=== PATIENT | female | born 1955 | race Caucasian/White ===

== ENCOUNTER → 2018-07-14 12:41 | Outpatient (CLI) | payer OTHER, SELFPAY ==
--- NOTE | 2018-07-14 | DI.MG.S_ITS ---
BILATERAL DIGITAL SCREENING MAMMOGRAM 3D/2D WITH CAD: 07/14/2018 CLINICAL: Routine screening. Family history of breast cancer. Comparison is made to exams dated: 07/11/2017 mammogram, 06/25/2016 mammogram, and 06/25/2015 mammogram - [facility]. The tissue of both breasts is heterogeneously dense. This may lower the sensitivity of mammography. Current study was also evaluated with a Computer Aided Detection (CAD) system. There are benign calcifications in both breasts. No significant masses, calcifications, or other findings are seen in either breast. There has been no significant interval change. IMPRESSION: There is no mammographic evidence of malignancy. A 1 year screening mammogram is recommended. This exam was interpreted at Station ID: [id number]. NOTE: For mammograms, a report in lay terms will be sent to the patient. Approximately 15% of breast malignancies will not be visualized mammographically. In the management of a palpable breast mass, a negative mammogram must not discourage biopsy of a clinically suspicious lesion. Electronically Signed By: Luis corley/tinana:07/14/2018 13:20:36 letter sent: Normal Exam ACR BI-RADS Category 2: Benign Finding(s) 3342F
== END ==
PROVIDERS: PCP Family Medicine; Visit Provider Family Medicine
DX: Z12.31 Encounter for screening mammogram for malignant neoplasm of breast (principal); Z80.3 Family history of malignant neoplasm of breast
CPT/HCPCS: 77063; 77067

== ENCOUNTER 2019-01-11 11:42 | Day surgery (SDC) | payer OTHER, SELFPAY ==
[2019-01-11 13:02] VITALS: BP 122/78; PULSE 70; RESP 16; TEMP 37.2; O2SAT 100
[2019-01-11 13:03] VITALS: BMI 37.4
[2019-01-11] MEDS: SODIUM CHLORIDE 0.9% 1,000 ML 200 ML IV (13:07)
--- NOTE | 2019-01-11 13:22 | P.HP_ITS ---
History of Present Illness History of Present Illness Date Patient Seen: 01/11/19 Time Patient Seen: 13:22 Chief complaint: [id number] Narrative: Patient presents for colorectal screening. They had a previous colonoscopy 19 years ago that was normal. On further history denies any recent gastrointestinal symptoms. No nausea, vomiting, abdominal pain, loss of appetite, unexplained weight loss, change in bowel habits, constipation, melena, hematochezia, or bright red blood per rectum. Patient History Medical History (Updated 01/11/19 @ 13:24 by Nahum Dempsey MD) Asthma (Acute) GERD (gastroesophageal reflux disease) (Acute) Hypothyroid (Acute) Surgical History (Updated 01/11/19 @ 13:23 by Nahum Dempsey MD) History of cholecystectomy (Acute) Social History household members: none Family & Social History Social History: household members none Meds Home Medications and Allergies Home Medications Medication Instructions Recorded Confirmed Type CHOLECALCIFEROL (VITAMIN D3) Q DAY #0 06/14/10 History (Vitamin D3) OXYMETAZOLINE HYDROCHLORIDE (Afrin) 2 spray INTRANASAL PRN #0 06/14/10 History TRIAMCINOLONE NASAL INHALER 1 puff INH PRN #0 06/14/10 History (NASACORT) VITAMIN C - Q DAY #0 06/14/10 History (VITAMIN C) [CQ10] Q DAY #0 06/14/10 History [GLUCOSAMINE] Q DAY #0 06/14/10 History albuterol sulfate [ProAir HFA] 1 inh INHALATION QID #0 06/14/10 01/11/19 History beclomethasone dipropionate [Qvar 1 inh INHALATION BID #0 06/14/10 01/11/19 History RediHaler] levothyroxine [Synthroid] 75 mcg PO DAILY #0 06/14/10 01/11/19 History triamterene-hydrochlorothiazid 1 cap PO DAILY #0 06/14/10 01/11/19 History omeprazole 20 mg PO DAILY 01/11/19 01/11/19 History Allergies Allergy/AdvReac Type Severity Reaction Status Date / Time morphine AdvReac Mild itching Verified 01/11/19 13:12 all over tomato AdvReac Mild itching Verified 01/11/19 13:12 Review of Systems Review of Systems ROS Unobtainable: All systems reviewed & are unremarkable except as noted in HPI and below Exam Vital Signs (past 8 hours): - 01/11/19 13:02 Temperature 99.0 F Pulse Rate 70 Respiratory Rate 16 Blood Pressure 122/78 Pulse Oximetry 100 Oxygen Delivery Method Room Air Narrative Exam Narrative: General-adult female no acute distress, well nourished HEENT-moist mucous membranes, no scleral icterus Neck-supple with full range of motion, no lymphadenopathy Chest- no labored respirations, clear to auscultation bilaterally Cardiac-regular rate and rhythm Abdomen-soft, nontender, non distended Extremities-no edema, warm well perfused Neurological-alert and oriented x 3. No focal deficits Skin-normal temperature and turgor, no rashes or ulcers Assessment & Plan Assessment and plan (1) Screening for colon cancer: Current visit: Yes Status: Acute Assessment & Plan narrative: Patient is requiring colorectal screening. Colonoscopy is recommended. Technical details were discussed. Risks, benefits, alternatives explained. Risks including but not limited to sedation, aspira tion, bleeding, pain, missed lesion, incomplete examination, need for further radiographic studies, colonic perforation, need for major abdominal surgery, and all attendant risks major surgery were discussed at length. All questions were answered to their satisfaction, and they voiced understanding.
[2019-01-11] MEDS: MIDAZOLAM 5 MG/5 ML VIAL IV ×2 (13:25→13:49)
[2019-01-11] MEDS: fentaNYL 250 MCG/5 ML INJ IV ×2 (13:25→13:49)
[2019-01-11] MEDS: GLUCAGON,HUMAN RECOMBINANT 1 MG/ML VIAL IV (13:33)
[2019-01-11 13:55] VITALS: BP 130/70; PULSE 71; RESP 16; TEMP 36.2; O2SAT 99
--- NOTE | 2019-01-11 13:55 | PM.OP.ENDO ---
Operative Date/Time/Diagnoses Date of procedure: 01/11/19 Time of procedure: 13:56 Post-op diagnosis: same Procedure & Clinicians Study performed: Screening colonoscopy Same procedure as scheduled: Yes Indications: 63-year-old female with previous colonoscopy 19 years ago presents routine screening Surgeon: Nahum Dempsey Procedure Notes SCOAP/Timeout: For for Procedure in detail: A digital rectal exam was performed that was negative for internal masses. Scope was carefully inserted into the rectum and advanced through the sigmoid and descending colon and transverse colon. I was unable to make it the cecum. Attempts with repositioning the patient a scope stiffener and manual pressure were attempted but none were successful in completely navigating her tortuous colon. The scope was slowly withdrawn. The colon was notable for for the next diverticulosis. She will require a barium enema to complete her screening. Scope withdrawal time: NA Sedation minutes: 30 Findings: diverticulosis Specimen(s): none sent Complications: none Impression: Incomplete colonoscopy. Diverticulosis Post-procedure Recommendations: Other recommendation (Barium enema) Disposition: same day surgery
[2019-01-11 14:00] VITALS: BP 117/64; PULSE 67; RESP 17; O2SAT 98
[2019-01-11 14:05] VITALS: BP 129/71; PULSE 95; RESP 17; O2SAT 98
[2019-01-11 14:14] VITALS: BP 119/67; PULSE 65; RESP 16; O2SAT 99
[2019-01-11 15:20] VITALS: BP 114/58; PULSE 72; RESP 15; TEMP 36.1; O2SAT 100
== END 2019-01-11 15:24 | disposition home or self-care (01) ==
PROVIDERS: PCP Family Medicine; Visit Provider Surgery
PROC: 0DJD8ZZ Inspection of Lower Intestinal Tract, Via Natural or Artificial Opening Endoscopic (ICD-10-PCS; CPT 45378; principal; 2019-01-11 13:00)
DX: Z12.11 Encounter for screening for malignant neoplasm of colon (principal); K57.30 Diverticulosis of large intestine without perforation or abscess without bleeding; Z53.09 Procedure and treatment not carried out because of other contraindication; J45.909 Unspecified asthma, uncomplicated; E03.9 Hypothyroidism, unspecified; K21.9 Gastro-esophageal reflux disease without esophagitis
CPT/HCPCS: 45378; 99152; 99153; J1610; J2250; J3010

== ENCOUNTER → 2019-02-16 07:45 | Outpatient (CLI) | payer OTHER, SELFPAY ==
--- NOTE | 2019-02-16 07:46 | DI.RAD.S_ITS ---
PROCEDURE: FL BARIUM ENEMA W AIR CONTRAST INDICATIONS: tortuous colon unable to reach extent of colonoscopy COMPARISON: None. FINDINGS: KUB: Pre-procedural budget counselor film demonstrates a normal bowel gas pattern. No suspicious abdominal calcifications. Visualized solid organ contours are normal in size. No suspicious bony lesions. Colon: There is adequate air-contrast opacification from the rectum to the cecum. Numerous colonic diverticula. No strictures, ulcers, polyps, or masses are seen. Haustral folds are normal in thickness throughout. IMPRESSION: Diffuse colonic diverticulosis. Otherwise, unremarkable examination. Dictated by: Carter Hawkins M.D. on 02/16/2019 at 9:36 Approved by: Carter Hawkins M.D. on 02/16/2019 at 9:37
== END ==
PROVIDERS: PCP Family Medicine; Visit Provider Surgery
DX: Z12.11 Encounter for screening for malignant neoplasm of colon (principal); K57.30 Diverticulosis of large intestine without perforation or abscess without bleeding
CPT/HCPCS: 74280

== ENCOUNTER → 2019-03-08 13:27 | Outpatient (CLI) | payer OTHER, SELFPAY ==
--- NOTE | 2019-03-08 | DI.CT.S_ITS ---
PROCEDURE: CT SINUS SCREEN WO CON INDICATIONS: Acute sinusitis, unspecified TECHNIQUE: Noncontrast 3.0 mm axial images acquired from the frontal sinuses to the mid-sella, with coronal and sagittal reformats. For radiation dose reduction, the following was used: automated exposure control, adjustment of mA and/or kV according to patient size. COMPARISON: None. FINDINGS: Image quality: Excellent. Maxillary Sinuses: No bony remodeling or destruction. A mucus retention cyst can be seen involving the medial left maxillary sinus. Ethmoid Air Cells: No bony remodeling or destruction. Sinuses are clear. Sphenoid Sinuses: No bony remodeling or destruction. Sinuses are clear. Frontal Sinuses: No bony remodeling or destruction. Sinuses are clear. Ostiomeatal Complexes: Ostiomeatal complexes are patent. No Jocelyne cells. Miscellaneous: There is a 3 mm metallic fragment seen involving the right lamina papyracea. Visualized intra-orbital contents are otherwise normal. No major bullosa or paradoxical turbinate curvature. There is minimal rightward nasal septal deviation. Incidental note is made of hyperostosis frontalis. This is not considered to be pathologic in a woman of this age. IMPRESSION: No significant active paranasal sinus disease is seen. 3 mm metallic fragment seen involving the right lamina papyracea. Dictated by: Frank Aragon M.D. on 03/08/2019 at 13:14 Approved by: Frank Aragon M.D. on 03/08/2019 at 13:17
== END ==
PROVIDERS: PCP Family Medicine; Visit Provider Family Medicine
DX: J01.90 Acute sinusitis, unspecified (principal); M79.5 Residual foreign body in soft tissue; Z18.10 Retained metal fragments, unspecified
CPT/HCPCS: 70486

== ENCOUNTER → 2019-10-03 14:34 | Outpatient (CLI) | payer OTHER, SELFPAY ==
--- NOTE | 2019-10-03 | DI.MG.S_ITS ---
BILATERAL DIGITAL SCREENING MAMMOGRAM 3D/2D WITH CAD: 10/03/2019 CLINICAL: Routine screening. Family history of breast cancer. Comparison is made to exams dated: 07/14/2018 mammogram, 07/11/2017 mammogram, and 06/25/2016 mammogram - [facility]. The tissue of both breasts is heterogeneously dense. This may lower the sensitivity of mammography. Current study was also evaluated with a Computer Aided Detection (CAD) system. There are benign calcifications in both breasts. No significant masses, calcifications, or other findings are seen in either breast. There has been no significant interval change. IMPRESSION: There is no mammographic evidence of malignancy. A 1 year screening mammogram is recommended. This exam was interpreted at Station ID: [id number]. NOTE: For mammograms, a report in lay terms will be sent to the patient. Approximately 15% of breast malignancies will not be visualized mammographically. In the management of a palpable breast mass, a negative mammogram must not discourage biopsy of a clinically suspicious lesion. Electronically Signed By: Brigette tavarez/tianna:10/03/2019 15:19:38 letter sent: Normal Exam ACR BI-RADS Category 2: Benign Finding(s) 3342F
== END ==
PROVIDERS: PCP Family Medicine; Referring Provider Family Medicine; Visit Provider Family Medicine
DX: Z12.31 Encounter for screening mammogram for malignant neoplasm of breast (principal); Z80.3 Family history of malignant neoplasm of breast
CPT/HCPCS: 77063; 77067

== ENCOUNTER → 2020-04-28 12:05 | Outpatient (CLI) | payer MEDICARE, OTHER, SELFPAY ==
--- NOTE | 2020-04-28 | DI.RAD.S_ITS ---
PROCEDURE: XR HIP W PEL IF DONE RT 2V INDICATIONS: RIGHT HIP PAIN TECHNIQUE: AP pelvis with lateral view(s) of the right hip(s). COMPARISON: [facility], , HIP 2V LEFT, 06/20/2013, 12:20. FINDINGS: Bones: No fractures or dislocations. Pelvic ring appears intact. No suspicious bony lesions. Soft tissues: The visualized bowel gas pattern is normal. No suspicious soft tissue calcifications. IMPRESSION: Asymmetric hip joint osteoarthritis, minimal on the left and moderate on the right. No trauma. Dictated by: Michael Corrales M.D. on 04/28/2020 at 13:45 Approved by: Michael Corrales M.D. on 04/28/2020 at 13:45
== END ==
PROVIDERS: PCP Family Medicine; Referring Provider Family Medicine; Visit Provider Family Medicine
DX: M25.551 Pain in right hip (principal); M16.11 Unilateral primary osteoarthritis, right hip
CPT/HCPCS: 73502

== ENCOUNTER → 2020-10-07 10:04 | Outpatient (CLI) | payer MEDICARE, OTHER, SELFPAY ==
--- NOTE | 2020-10-07 | DI.MG.S_ITS ---
BILATERAL DIGITAL SCREENING MAMMOGRAM 3D/2D WITH CAD: 10/07/2020 CLINICAL: Routine screening. Family history of breast cancer. Comparison is made to exams dated: 10/03/2019 mammogram, 07/14/2018 mammogram, and 07/11/2017 mammogram - [facility]. The tissue of both breasts is heterogeneously dense. This may lower the sensitivity of mammography. Current study was also evaluated with a Computer Aided Detection (CAD) system. There are benign calcifications in both breasts. No significant masses, calcifications, or other findings are seen in either breast. There has been no significant interval change. IMPRESSION: BENIGN There is no mammographic evidence of malignancy. A 1 year screening mammogram is recommended. This exam was interpreted at Station ID: [id number]. NOTE: For mammograms, a report in lay terms will be sent to the patient. Approximately 15% of breast malignancies will not be visualized mammographically. In the management of a palpable breast mass, a negative mammogram must not discourage biopsy of a clinically suspicious lesion. Electronically Signed By: Tirso herndon/tianna:10/07/2020 10:47:02 letter sent: Normal Exam ACR BI-RADS Category 2: Benign Finding(s) 3342F
== END ==
PROVIDERS: PCP Family Medicine; Referring Provider Family Medicine; Visit Provider Family Medicine
DX: Z12.31 Encounter for screening mammogram for malignant neoplasm of breast (principal); Z80.3 Family history of malignant neoplasm of breast
CPT/HCPCS: 77063; 77067

== ENCOUNTER → 2021-04-14 13:36 | Outpatient (CLI) | payer MEDICARE, OTHER, SELFPAY ==
--- NOTE | 2021-04-14 | DI.US.S_ITS ---
PROCEDURE: US PERIPH VENOUS LOW EXTREM LT INDICATIONS: LEFT KNEE PAIN TECHNIQUE: Real-time imaging, as well as color and pulse Doppler interrogation, were performed of the lower extremity deep veins from the inguinal ligament to the popliteal fossa. COMPARISON: None. FINDINGS: The common femoral, femoral and popliteal veins are normally compressible, and free of intraluminal thrombus. Color and pulse Doppler demonstrate normal phasic intraluminal flow. There is normal augmentation response to distal compression maneuver. 2.3 x 1.0 x 0.7 centimeter fluid collection noted in the posterior medial fossa which likely represents popliteal cyst. IMPRESSION: No evidence of deep vein thrombosis involving the left lower extremity. Dictated by: Smiley Nair MD, PhD on 04/14/2021 at 14:56 Approved by: Smiley Nair MD, PhD on 04/14/2021 at 15:46
== END ==
PROVIDERS: PCP Family Medicine; Referring Provider Family Medicine; Visit Provider Family Medicine
DX: M25.562 Pain in left knee (principal)
CPT/HCPCS: 93971

== ENCOUNTER → 2021-05-26 13:49 | Outpatient (CLI) | payer MEDICARE, OTHER, SELFPAY ==
--- NOTE | 2021-05-26 | DI.MG.S_ITS ---
UNILATERAL LEFT DIGITAL DIAGNOSTIC MAMMOGRAM 3D/2D: 05/26/2021 CLINICAL: Left breast pain. Comparison is made to exams dated: 10/07/2020 mammogram, 10/03/2019 mammogram, and 07/14/2018 mammogram - [facility]. The tissue of left breast is heterogeneously dense. This may lower the sensitivity of mammography. No significant masses, calcifications, or other findings are seen in the breast. IMPRESSION: INCOMPLETE: NEEDS ADDITIONAL IMAGING EVALUATION There is no abnormality seen in the left breast to correspond with the pain, however, ultrasound is recommended. This exam was interpreted at Station ID: [id number]. NOTE: For mammograms, a report in lay terms will be sent to the patient. Approximately 15% of breast malignancies will not be visualized mammographically. In the management of a palpable breast mass, a negative mammogram must not discourage biopsy of a clinically suspicious lesion. Electronically Signed By: Tirso herndon/tianna:05/26/2021 15:51:42 ACR BI-RADS Category 0: Incomplete 3340F
--- NOTE | 2021-05-26 | DI.US.S_ITS ---
LIMITED ULTRASOUND OF LEFT BREAST: 05/26/2021 CLINICAL: Focal left breast pain. Comparison is made to exams dated: 05/26/2021 mammogram, 10/07/2020 mammogram, 10/03/2019 mammogram, and 07/14/2018 mammogram - [facility]. Color flow ultrasound of the left breast 11 o'clock region was performed. De Santiago scale images of the real-time examination were reviewed. No significant abnormalities were seen sonographically in the left breast. IMPRESSION: NEGATIVE There is no sonographic evidence of malignancy. There is no abnormality seen in the left breast to correspond with the pain, however, clinical followup is recommended. Return to annual mammogram screening schedule is recommended. This exam was interpreted at Station ID: [id number]. Electronically Signed By: Tirso herndon/tianna:05/26/2021 15:53:01 letter sent: Clinical Evaluation Ultrasound BI-RADS: 1 Negative
== END ==
PROVIDERS: PCP Family Medicine; Referring Provider Family Medicine; Visit Provider Family Medicine
DX: N64.4 Mastodynia (principal); R92.2 Inconclusive mammogram
CPT/HCPCS: 76642; 77065; G0279

== ENCOUNTER → 2021-06-19 13:21 | Outpatient (CLI) | payer MEDICARE, OTHER, SELFPAY ==
--- NOTE | 2021-06-19 | DI.RAD.S_ITS ---
PROCEDURE: XR HIP W PEL IF DONE RT 2V INDICATIONS: Pain in right hip TECHNIQUE: AP pelvis with lateral view(s) of the right hip(s). COMPARISON: [facility], , XR HIP W PEL IF DONE RT 2V, 04/28/2020, 12:15. FINDINGS: Bones: No fractures or dislocations. Moderate medial joint space narrowing narrowing of the right hip with osteophytosis. Productive changes are seen about the bilateral greater trochanters. Pelvic ring appears intact. No suspicious bony lesions. Soft tissues: The visualized bowel gas pattern is normal. No suspicious soft tissue calcifications. IMPRESSION: No significant interval change Dictated by: Michael Clark M.D. on 06/19/2021 at 14:31 Approved by: Michael Clark M.D. on 06/19/2021 at 14:33
== END ==
PROVIDERS: PCP Family Medicine; Referring Provider Family Medicine; Visit Provider Family Medicine
DX: M25.551 Pain in right hip (principal)
CPT/HCPCS: 73502

== ENCOUNTER → 2022-05-15 13:47 | Outpatient (CLI) | payer MEDICARE, OTHER, SELFPAY ==
--- NOTE | 2022-05-15 13:49 | DI.MRI.S_ITS ---
PROCEDURE: MR LUMBAR SPINE WO CON INDICATIONS: Lumbago with sciatica, right side TECHNIQUE: Noncontrast sagittal T1 spin echo and T2 fast echo, sagittal STIR, and T2 fast spin echo through the lumbar spine. In cases with scoliosis, additional coronal T2 fast spin echo may be performed. COMPARISON: [facility], CT, ABDOMEN/PELVIS WITH CONTRAST, 06/15/2010, 9:35. [facility], MR, L-SPINE W&WO CONTRAST, 10/03/2015, 7:28. [facility], MR, L-SPINE WITHOUT CONTRAST, 06/28/2013, 18:16. FINDINGS: Image quality: Excellent. Alignment and Curvature: 5 lumbar type vertebral bodies are present by plain film. 3 mm of retrolisthesis of L2 on L3 and L5 on S1. Bone Marrow: Marrow is of normal overall signal. No acute vertebral body compression fractures. Mild reactive signal throughout the endplates of the lumbar and lower thoracic spine. Spinal Cord: Conus medullaris terminates at the L1-L2 disc space level. Visualized cord demonstrates normal signal and size. Paraspinous Soft Tissues: No paravertebral masses. T12-L1: Mild disc height loss and desiccation. No significant canal, or foraminal stenosis. No significant change. L1-L2: Mild disc height loss and desiccation. Mild diffuse disc bulge. Minimal canal stenosis. No foraminal stenosis. No significant change. L2-L3: Mild disc height loss and desiccation. Mild diffuse disc bulge with small superimposed broad-based right paracentral protrusion. Mild facet and ligamentum flavum hypertrophy. Mild epidural lipomatosis. Mild canal stenosis. Mild bilateral foraminal stenosis. L3-L4: Moderate disc height loss and desiccation. Mild diffuse disc bulge. Mild facet and ligamentum flavum hypertrophy. Mild epidural lipomatosis. Mild canal stenosis. Mild bilateral foraminal stenosis. No significant change. L4-L5: Severe disc height loss and desiccation. Mild diffuse disc bulge. Mild bilateral facet hypertrophy. Mild canal stenosis. Moderate bilateral foraminal stenosis. No significant change. L5-S1: Moderate disc height loss and desiccation. Mild diffuse disc bulge. Mild facet and ligamentum flavum hypertrophy. Mild canal stenosis. Moderate bilateral foraminal stenosis. No significant change. IMPRESSION: 1. Multilevel degenerative disc and facet disease, as well as ligamentum flavum hypertrophy and epidural lipomatosis. 2. Mild multilevel canal stenoses. 3. Multilevel foraminal stenoses, worst at L4-L5 and L5-S1 where there are moderate foraminal stenoses present. Dictated by: Nella Mederos M.D. on 05/17/2022 at 8:58 Approved by: Nella Mederos M.D. on 05/17/2022 at 9:05
== END ==
PROVIDERS: PCP Family Medicine; Referring Provider Family Medicine; Visit Provider Family Medicine
DX: M51.16 Intervertebral disc disorders with radiculopathy, lumbar region (principal); M51.17 Intervertebral disc disorders with radiculopathy, lumbosacral region; M48.061 Spinal stenosis, lumbar region without neurogenic claudication; M48.07 Spinal stenosis, lumbosacral region
CPT/HCPCS: 72148

== ENCOUNTER → 2022-12-29 15:16 | Outpatient (CLI) | payer MEDICARE, OTHER, SELFPAY ==
--- NOTE | 2022-12-29 | DI.MG.S_ITS ---
BILATERAL DIGITAL SCREENING MAMMOGRAM 3D/2D WITH CAD: 12/29/2022 CLINICAL: Routine screening. Family history of breast cancer. Comparison is made to exams dated: 10/07/2020 mammogram, 10/03/2019 mammogram, and 07/14/2018 mammogram - [facility]. Both breasts are heterogeneously dense, which may obscure small masses (category c / 51-75% glandular tissue). Current study was also evaluated with a Computer Aided Detection (CAD) system. No significant masses, calcifications, or other findings are seen in either breast. There has been no significant interval change. IMPRESSION: NEGATIVE There is no mammographic evidence of malignancy. A 1 year screening mammogram is recommended. Based on Tyrer-Cuzick model (a risk assessment model), the patient's lifetime risk is 22.1% and her 10 year risk is 12.2%. If a patient has an elevated risk, a more comprehensive evaluation should be considered and/or a referral to a genetic counselor. The [place] [employer], [employer], and NCCN Guidelines advise the consideration of Breast MRI as an adjunct to screening mammography in patients whose Lifetime risk to develop breast cancer is 20% or higher. This exam was interpreted at Station ID: [id number]. NOTE: For mammograms, a report in lay terms will be sent to the patient. Approximately 15% of breast malignancies will not be visualized mammographically. In the management of a palpable breast mass, a negative mammogram must not discourage biopsy of a clinically suspicious lesion. Electronically Signed By: Za carias/tianna:12/30/2022 14:22:42 letter sent: Normal Exam ACR BI-RADS Category 1: Negative 3341F
== END ==
PROVIDERS: PCP Family Medicine; Referring Provider Family Medicine; Visit Provider Family Medicine
DX: Z12.31 Encounter for screening mammogram for malignant neoplasm of breast (principal); Z80.3 Family history of malignant neoplasm of breast
CPT/HCPCS: 77063; 77067

== ENCOUNTER → 2023-01-27 12:17 | Outpatient (CLI) | payer MEDICARE, OTHER, SELFPAY ==
--- NOTE | 2023-01-27 | DI.MRI.S_ITS ---
PROCEDURE: MR HIP RT WO CON INDICATIONS: Pain in right hip TECHNIQUE: Noncontrast coronal T1 spin echo and STIR through the bony pelvis. Coronal and axial T2 fast spin echo with fat saturation, sagittal T1 spin echo, and oblique axial T2 fast spin echo with fat saturation through the hip. COMPARISON: [facility], CR, XR HIP W PEL IF DONE RT 2V, 04/28/2020, 12:15. FINDINGS: Image quality: Excellent. Bones and joints: There is moderate degenerative marrow edema within the right acetabulum and femoral head. Moderate periarticular osteophyte formation at the right hip joint. Bone marrow of the pelvic ring and proximal femurs show normal signal throughout. No intraosseous lesions or fractures. No avascular necrosis of the femoral heads. The visualized lower lumbar spine appears normally aligned. Tendons and ligaments: The gluteus medius and minimus tendons appear intact, without associated muscle atrophy. Mild T2 signal elevation at the femoral insertion sites of the right gluteus medius and minimus tendons. The nearby proximal iliotibial band also appears intact. The iliopsoas tendon appears intact, without adjacent bursal fluid collections or evidence for impingement syndrome. The origin of the hamstring tendon is intact at the ischial tuberosity, as well as the associated sacrotuberous ligament. Mild T2 signal elevation within and surrounding the proximal hamstring tendon. The straight and reflected heads of the rectus femoris muscle origin appear intact, as well as the conjoint tendon. The ligamentum teres appears intact where visualized. Labrum and cartilage: Diffuse degenerative fraying of the right hip labrum. Cartilage surface of the femoral head appears of normal thickness. The alpha angle of the femur is within normal limits at less than 55 degrees. Soft tissues: Visualized muscles demonstrate normal bulk and internal signal. Quadratus femoris muscle demonstrates no internal edema to suggest ischiofemoral impingement. The proximal sciatic neurovascular bundle appears normal adjacent to the hamstring tendons. No free pelvic fluid. Bladder wall thickness is normal. Genitourinary structures and bowel loops appear normal where visualized. IMPRESSION: 1. Right hip osteoarthritis associated with degenerative right hip labral tearing. 2. Insertional tendinitis of the right gluteus medius and minimus tendons. 3. Mild hamstring tendinopathy. Dictated by: Nella Mederos M.D. on 01/27/2023 at 14:25 Approved by: Nella Mederos M.D. on 01/27/2023 at 14:27
== END ==
PROVIDERS: PCP Family Medicine; Referring Provider Family Medicine; Visit Provider Family Medicine
DX: M16.11 Unilateral primary osteoarthritis, right hip (principal); M25.551 Pain in right hip; S73.101A Unspecified sprain of right hip, initial encounter; M76.01 Gluteal tendinitis, right hip
CPT/HCPCS: 73721

== ENCOUNTER → 2023-02-17 11:08 | Outpatient (CLI) | payer MEDICARE, OTHER, SELFPAY ==
--- NOTE | 2023-02-17 | DI.RAD.S_ITS ---
Bone Density Report Name: ELEANOR ESCOTO Age: 67 Sex: Female Ethnicity: White Date of : 1955 Indication: postmenopausal; screening for osteoporosis; Referring Provider: AL CLEVELAND Study: Bone densitometry was performed. Exam Date: February 17, 2023 Accession number: [id number] Bone Density: Region BMD T-score Z-score Classification AP Spine(L1, L2, L3) 1.201 1.7 3.6 Normal Femoral Neck (Left) 0.884 0.3 2.0 Normal Total Hip (Left) 1.037 0.8 2.2 Normal Femoral Neck (Right) 0.944 0.9 2.5 Normal Total Hip (Right) 0.993 0.4 1.8 Normal Total Hip Mean 1.015 0.6 2.0 Normal World Health Organization criteria for BMD impression classify patients as: Normal (T-score at or above -1.0), Osteopenia (T-score between -1.0 and -2.5), or Osteoporosis (T-score at or below -2.5). 10-year Fracture Risk: FRAX not reported because: All T-scores for Spine Total, Hip Total, Femoral Neck at or above -1.0 Impression: The patient has normal bone mass. Discussion: BONE DENSITY IS ABOVE THE MINIMUM DESIRABLE LEVEL AT ALL SKELETAL SITES TESTED. This patient's bone mineral density is above the minimum desirable level (T-score -1.0 or better) at all sites measured. The patient should follow a healthful lifestyle (good nutrition with adequate calcium and vitamin D, and appropriate weight-bearing exercise). Follow-Up: Consider repeating this study in 5 years or sooner if there is some new clinical indication. Reported by: ROSLYN MCLEOD M.D. on 02/17/2023 12:04:00 PM.
== END ==
PROVIDERS: PCP Family Medicine; Referring Provider Orthopaedic Surgery Adult Reconstructive Orthopaedic Surgery; Visit Provider Orthopaedic Surgery Adult Reconstructive Orthopaedic Surgery
DX: M81.0 Age-related osteoporosis without current pathological fracture (principal); E03.9 Hypothyroidism, unspecified; Z78.0 Asymptomatic menopausal state
CPT/HCPCS: 77080

== ENCOUNTER → 2023-02-23 08:11 | Outpatient (CLI) | payer MEDICARE, OTHER, SELFPAY ==
[2023-02-23 09:36] LABS: Add Manual Diff / Slide Review NO; Basophils Absolute Auto 100 /uL (0-100); Basophils Percent Auto 1.7 % (0-2); Eosinophils Absolute Auto 400 /uL (0-450); Eosinophils Percent Auto 5.8 % (2-4); Hematocrit 39.9 % (36-46); Hemoglobin 13.6 g/dL (12.0-16.0); Lymphocytes Absolute Auto 2100 /uL (1100-4500); Lymphocytes Percent Auto 34.4 % (25-40); Mean Corpuscular Hemoglobin 30.5 PG (26-34); Mean Corpuscular Volume 89.7 fL (80-100); Monocytes Absolute Auto 500 /uL (0-900); Monocytes Percent Auto 8.5 % (3-14); Neutrophils Absolute Auto 3000 /uL (1500-7000); Neutrophils Percent Auto 49.6 % (50-75); Platelet Count 243 X10^3/uL (150-400); Red Blood Cell Count 4.45 X10^6/uL (4.0-5.2); Red Cell Distribution Width 14.1 % (11.6-14.8); White Blood Cell Count 6.1 X10^3/uL (4.5-11.0)
[2023-02-23 09:47] LABS: Albumin 4.1 g/dL (3.5-5.0); BUN Creatinine Ratio 26.5 (6-22); Blood Urea Nitrogen 22 mg/dL (7-17); Calcium 9.6 mg/dL (8.4-10.2); Carbon Dioxide 29 mmol/L (22-32); Chloride 103 mmol/L (98-107); Estimated Glomerular Filt Rate > 60 mL/min (>60); Glucose 91 mg/dL (80-110); HEMOLYSIS < 15 (0-50); Potassium 3.9 mmol/L (3.4-5.1); Sodium 139 mmol/L (137-145)
[2023-02-23 09:54] LABS: Prealbumin 29.9 mg/dL (17.6-36.0)
== END ==
PROVIDERS: PCP Family Medicine; Referring Provider Orthopaedic Surgery Adult Reconstructive Orthopaedic Surgery; Visit Provider Orthopaedic Surgery Adult Reconstructive Orthopaedic Surgery
DX: Z01.818 Encounter for other preprocedural examination (principal); R73.9 Hyperglycemia, unspecified; E55.9 Vitamin D deficiency, unspecified; R77.0 Abnormality of albumin; Z01.812 Encounter for preprocedural laboratory examination
CPT/HCPCS: 36415; 80048; 82040; 82306; 83036; 84134; 85025; 93005

== ENCOUNTER 2023-04-01 10:17 | Day surgery (SDC) | payer MEDICARE, OTHER, SELFPAY ==
[2023-03-21 10:33] VITALS: BMI 35.2
[2023-04-01] VITALS (17 sets, daily range): BP systolic 127–150; BP diastolic 55–73; PULSE 57–71; RESP 9–21; TEMP 36.1–37; O2SAT 95–100; BMI 35.2
--- NOTE | 2023-04-01 | DI.RAD.S_ITS ---
PROCEDURE: XR HIP W PEL IF DONE RT 2V INDICATIONS: TOTAL HIP SURGERY TECHNIQUE: AP pelvis and lateral view of the right hip acquired. COMPARISON: [facility], [place], XR HIP W PEL IF DONE RT 2V, 04/01/2023, 14:27. [facility], [place], XR HIP W PEL IF DONE RT 2V, 06/19/2021, 13:22. FINDINGS: Bones: Patient is status post right hip arthroplasty, with hardware components in expected positions. The hip joint appears congruent. The visualized bony structures appear intact. Soft tissues: Overlying postoperative changes are noted. No suspicious soft tissue densities. IMPRESSION: Expected post-operative appearance of a hip arthroplasty. Approved by: Tirso Botello M.D. on 04/01/2023 at 17:00
--- NOTE | 2023-04-01 06:00 | DI.RAD.S_ITS ---
PROCEDURE: XR HIP W PEL IF DONE RT 2V INDICATIONS: EMANUEL TECHNIQUE: 2 view(s) of the hip acquired. COMPARISON: [facility], [place], XR HIP W PEL IF DONE RT 2V, 04/01/2023, 16:09. [facility], [place], XR HIP W PEL IF DONE RT 2V, 06/19/2021, 13:22. [facility], [place], XR PELVIS WITH LATERAL HIP RIGHT, 02/01/2023, 14:18. FINDINGS: 6 intraoperative fluoroscopy images demonstrate right hip arthroplasty. IMPRESSION: Intraoperative ostomy for right hip arthroplasty. Dictated by: Ava Keith M.D. on 04/02/2023 at 9:02 Approved by: Ava Keith M.D. on 04/02/2023 at 9:03
[2023-04-01] MEDS: LACTATED RINGERS 1,000 ML 42 ML IV ×2 (10:39→15:14)
[2023-04-01] MEDS: ACETAMINOPHEN 325 MG TABLET 1000 MG PO (10:41)
[2023-04-01] MEDS: MELOXICAM 7.5 MG TABLET PO (10:41)
--- NOTE | 2023-04-01 12:34 | PM.PREOP ---
Pre-operative Note Interval Note History & Physical reviewed/Exam performed by Physician: Yes Changes to H&P: No
[2023-04-01] MEDS: CEFAZOLIN 2 GM/100 ML PREMIX 100 ML IV ×2 (13:34→21:02)
[2023-04-01] MEDS: TRANEXAMIC ACID 1,000 MG VIAL 1000 MG INJ ×2 (13:45→15:39)
--- NOTE | 2023-04-01 14:06 | SUR.OPER ---
Supine on padded [place] table with bilateral legs secured in padded positioning boots and suspended in positioning spars, operative leg in traction per surgeon. Head on one pillow. Arm on non-operative side secured on padded armboard <90 degrees abduction. Arm on operative side padded and resting across chest then secured with tape over sheet. Padded perineal post in place per surgeon.
[2023-04-01] MEDS: ROPIVACAINE/EPI/CLONIDINE/KET 50 ML SYRINGE INJ (14:10)
[2023-04-01] MEDS: HYDROMORPHONE 1 MG INJ IV ×4 (16:05→16:20)
--- NOTE | 2023-04-01 16:22 | PM.OP.1 ---
Operative Date/Time/Diagnoses Date of procedure: 04/01/23 Pre-op diagnosis: Right hip arthritis Post-op diagnosis: same Procedure & Clinicians Procedure: Right total hip arthroplasty (CPT 53957) Same procedure as scheduled: Yes Surgeon: Víctor Freeman Service Engineer: Aura Beck Anesthesia Type: Spinal and Local Operative Notes Prosthetic devices, grafts, tissues, transplants, or devices: Depuy [place] 52 mm acetabular cup with 2 screws and Actis 4 standard offset femoral stem with 36 mm +1.5 ceramic head Estimated Blood Loss (mL): 500 Procedure in detail: This 68-year-old female patient was evaluated in the outpatient setting for hip pain. She was found to have radiographic changes consistent with hip arthritis. She was counseled regarding operative and nonoperative management. She elected to proceed with operative management. She was counseled extensively regarding expectations for surgery. This included a preoperative education class which can be viewed online. She was met in the preoperative holding area the day of surgery. She had her operative site marked and all questions were answered. Informed consent was signed. She was rolled back to the operating room and placed supine on the [place] table. The assistance of a physician customer relations assistant was required for room set up, soft tissue retraction, wound closure, and the surgery would not have been feasible without this assistance. A time-out procedure was performed. TXA and cefazolin were administered. A direct anterior approach to the hip was utilized. The skin was incised longitudinally in line with the femur along the border of the TFL muscle. Fascia was incised and dissected laterally. Retractor was placed over the superior femoral neck and a self retainer was placed deep splitting the fascia between the TFL and the rectus. Lateral circumflex vessels were coagulated with electrocautery. A Cobra retractor was placed over the inferior femoral neck. A capsulotomy was performed including release of the reflected head of rectus femoris. The leaflets of the capsule were both tagged. A soft tissue protector was placed over the tag stitches. The capsulotomy was extended medially until the lesser trochanter could be palpated and then a neck cut was measured based off of the preoperative templating. The femoral neck was cut and a separate napkin ring cut was utilized to free the femoral head. The femoral head was removed using a Haroon clamp. Retractors were then placed over the anterior and posterior wall. The labrum was excised. It was noted to be quite calcified and therefore was removed with a rongeur. The pulvinar was also excised. An episiotomy was performed in the inferior aspect of the capsule to allow for mobilization. I reamed up to a 51 mm Reamer. I noted good pinch fit with the Reamer. Fluoroscopy was brought in and an AP pelvis matching the standing radiograph was obtained which allowed visualization of the Reamer depth as well as the fit. Being satisfied with this I then placed a 52 mm cup. It was impacted into place under a AP pelvis matching the preoperative radiographs. This was then fixed in place with 2 screws, 40 mm and 15 mm. A 36 mm liner was impacted into place and verified to have been seated correctly by testing it with a tonsil. The retractors were all removed and the hip was externally rotated to 90? and traction was applied. Retractor was placed over the greater trochanter and the lateral capsule was released off the interface of the greater trochanter. Traction was released and verified to be released before extending and adducting the hip. Once the hip was in the broaching position retractors were placed over the calcar and the greater trochanter. The hip was externally rotated to 140?. A conjoined tendon release was performed. The hip was elevated. I broached up to a size 4 Actis broach after removing varus inducing bone laterally and opening the canal with a rasp. A standard offset neck and a +1.5 head were placed corresponding to preoperative templating. All retractors were removed, the hip was reduced to neutral extension, and the hip was manually reduced. I noted significant tension at that time. I obtained AP pelvis images which demonstrated that the operative side was slightly long. I therefore dislocated the hip, returned to the broaching position, replaced all of the retractors, and sink the broach further down the femur. This resulted in additional bone being able to be calcar planed, indicating to me that I had shortened the overall length of the construct. I trialed again with the standard neck and +1.5 head and noted less soft tissue tension as well as improved length on the AP pelvis fluoroscopic image. Additionally a maximum external rotation test to 110? did not result in instability. Likewise a 45 degree drop test did not result in instability. Being satisfied with this construct I returned to the broaching position and placed a size 4 standard offset Actis femoral stem down the canal. This achieved good collar fit. I placed a 36 mm +1.5 head on a clean dry trunnion. I reduced the hip and repeated all of the stability testing as well as the fluoroscopic imaging. I was satisfied with all these. I soaked the soft tissues in a dilute mixture of Betadine and peroxide for copiously irrigating them with pulse lavage. The hip was closed using a combination of Vicryl Stratafix and Monocryl sutures. Glue was applied. A soft dressing was applied. The patient was taken to the PACU where she awoke without complication. Post-operative Plan for aftercare: Weightbearing as tolerated new line aspirin 81 mg twice per day DVT prophylaxis Ambulate this evening with the assistance of nursing staff Anticipate discharge home tomorrow morning Follow up outpatient with our team in 2 weeks Detailed instructions for care at home are available with the following link: [email or web address]
[2023-04-01] MEDS: OXYCODONE IR 5 MG TABLET PO ×2 (16:24→20:57)
[2023-04-01] MEDS: hydrOXYzine pamoate 25 MG CAPSULE PO (16:24)
[2023-04-01] MEDS: ONDANSETRON 4 MG/2 ML INJ IV (16:40)
[2023-04-01] MEDS: LACTATED RINGERS 1,000 ML 100 ML IV (17:30)
--- NOTE | 2023-04-01 17:52 | PC.NURSE ---
Arrived from PACU awake A/O Aquacel dsg to right hip CDI Ice wrap/machine to hip in place. IVF infusing as per orders w/o incidence. Denies discomfort when asked. Call light w/in reach, bed alarm on for pt safety. Continue w/plan of care.
[2023-04-01] MEDS: ACETAMINOPHEN 325 MG TABLET 650 MG PO (19:44)
[2023-04-01] MEDS: IBUPROFEN 600 MG TABLET PO (19:45)
[2023-04-01] MEDS: BUDESONIDE 0.5 MG/2 ML NEB INH (20:25)
[2023-04-01] MEDS: ASPIRIN EC 81 MG TABLET PO (20:57)
[2023-04-01] MEDS: DOCUSATE 100 MG CAPSULE PO (20:57)
[2023-04-02 00:24] VITALS: BP 112/53; PULSE 59; RESP 16; TEMP 36.5; O2SAT 100
[2023-04-02] MEDS: ACETAMINOPHEN 325 MG TABLET 650 MG PO (02:11)
[2023-04-02] MEDS: IBUPROFEN 600 MG TABLET PO (02:12)
[2023-04-02] MEDS: CEFAZOLIN 2 GM/100 ML PREMIX 100 ML IV (05:21)
[2023-04-02 06:07] LABS: Hematocrit 33.1 % (36-46); Hemoglobin 11.2 g/dL (12.0-16.0)
[2023-04-02] MEDS: SODIUM CHLORIDE 0.9% FLUSH 10 ML IV (06:29)
[2023-04-02] MEDS: CHOLECALCIFEROL (VITAMIN D3) 1,000 UNIT TABLET 2000 UNIT PO (08:20)
[2023-04-02] MEDS: ASCORBIC ACID 500 MG TABLET 1000 MG PO (08:21)
[2023-04-02] MEDS: ASPIRIN EC 81 MG TABLET PO (08:21)
[2023-04-02] MEDS: LEVOTHYROXINE 75 MCG TABLET PO (08:22)
[2023-04-02] MEDS: DOCUSATE 100 MG CAPSULE PO (08:22)
[2023-04-02] MEDS: TRIAMTERENE/HCTZ 37.5/25 CAPSULE 1 CAP PO (08:22)
[2023-04-02] MEDS: ATORVASTATIN 20 MG TABLET 40 MG PO (08:22)
--- NOTE | 2023-04-02 09:01 | P.DS_ITS ---
History of Present Illness History of Present Illness Date Patient Seen: 04/02/23 Time Patient Seen: 09:01 Chief complaint: Hip pain Narrative: Patient states her hip pain is currently 7/10. No fever or chills. No nausea or vomiting. Her son will be available to assist her at home. Discharge Providers Provider Discharge Date: 04/02/23 Primary care physician: Yandel Acevedo DO Consults: 04/01/23 06:00 Consult to Anesthesiology Routine Comment: Consulting Provider: Anesthesiologist Reason for consultation: Regional block for post operative pain control 04/01/23 17:11 Consult to Discharge Planning Routine Comment: Consult to Physical Therapy Evaluate & Treat Comment: Physician Instructions: post op EMANUEL protocol Discharge provider: Parker Solorio PA-C Summary Hospital Course Discharge Diagnosis: Right hip arthritis Hospital Course: Right total hip arthroplasty (CPT 98166) Same procedure as scheduled: Yes Surgeon: Víctor Freeman Weightbearing as tolerated new line aspirin 81 mg twice per day DVT prophylaxis Ambulate this evening with the assistance of nursing staff Anticipate discharge home tomorrow morning Follow up outpatient with our team in 2 weeks Detailed instructions for care at home are available with the following link: [email or web address] Cosmetic Sales Assistant: Aura Beck Anesthesia Type: Spinal and Local Operative Notes Prosthetic devices, grafts, tissues, transplants, or devices: Depuy [place] 52 mm acetabular cup with 2 screws and Actis 4 standard offset femoral stem with 36 mm +1.5 ceramic head Estimated Blood Loss (mL): 500 Patient admitted to the hospital for the above-mentioned procedure. Patient consented to the same. Patient underwent right total hip arthroplasty, anterior approach April 01, 2023. Patient back in her room recovering well as in stable condition. Patient has assistance at home. Patient states she has her prescription for pain meds at home already which was given to her preop. Patient will work with Physical therapy this morning and be discharged home today in stable condition. Status at Discharge Cognitive/behavioral status at discharge: at baseline, oriented Functional status at discharge: uses cane/walker Overall status at discharge: patient is progressing back to baseline Exam Vital Signs (past 8 hours): Oxygen Delivery Method Room Air Oxygen Flow Rate 0 Narrative Exam Narrative: 60-year-old female standing at bedside in no apparent distress. Dressing is clean, dry and intact. Motor functions intact bilateral lower extremities. Sensation grossly intact to light touch bilateral lower extremities Const General: cooperative and comfortable Nutritional Appearance: obese (BMI 35.2) Orientation: alert Resp Effort & Inspection: normal respiratory effort and able to speak in complete sentences Objective Labs 04/02/23 05:29 Labs: Laboratory Results - last 24 hr 04/02/23 05:29 Hgb 11.2 L Hct 33.1 L PFSH Medical History Anesthesia complication Nasal fracture Diverticulosis Edema HLD (hyperlipidemia) HTN (hypertension) Chronic cough Generalized headaches Neuropathy Seasonal allergies GERD (gastroesophageal reflux disease) Asthma Hypothyroid Surgical History Hx of toe surgery Hx of laminectomy History of (1982) History of hysterectomy (2017) Hx of sinus surgery History of cholecystectomy Social History household members: none Smoking Status: Never smoker alcohol intake: current Discharge Assessment & Plan Assessment and Plan Assessment: Patient progressing as expected Plan of Treatment: Weightbearing as tolerated new line aspirin 81 mg twice per day DVT prophylaxis Ambulate this evening with the assistance of nursing staff Anticipate discharge home tomorrow morning Follow up outpatient with our team in 2 weeks Discharged home today in stable condition Detailed instructions for care at home are available with the following link: [email or web address] Discharge Plan Discharge Plan Patient Disposition: Home Discharge orders & Medications Discharge Orders: Discharge (Order); Ordered 04/02/23 Ordered By: Parekr Solorio Prescriptions: New aspirin 81 mg Tablet,Delayed Release (Dr/Ec) 81 mg PO BID Qty: 60 0RF Continued rosuvastatin 10 mg tablet 20 mg PO DAILY ascorbic acid (vitamin C) [Vitamin C] 1,000 mg Tablet 1,000 mg PO DAILY Qty: 0 cholecalciferol (vitamin D3) [Vitamin D3] 50 mcg (2,000 unit) Tablet 50 mcg PO DAILY Qty: 0 coenzyme Q10 [CoQ-10] 100 mg Capsule 200 mg PO DAILY Qty: 0 triamterene-hydrochlorothiazid 37.5-25 mg Capsule 1 cap PO DAILY Qty: 0 levothyroxine [Synthroid] 75 mcg Tablet 75 mcg PO DAILY Qty: 0 ibuprofen 800 mg Tablet 800 mg PO TID valacyclovir 500 mg Tablet 500 mg PO BID PRN (Reason: Flare) acetaminophen 500 mg Tablet 500 mg PO BID-TID PRN (Reason: Pain) fluticasone propionate [Flovent HFA] 110 mcg/actuation HFA aerosol inhaler 2 puff inhalation BID Follow up/Referrals: Yandel Acevedo DO [Primary Care Provider] - Víctor Freeman MD [Physician] - (2 weeks as scheduled) Diet/Activity/Treatments Diet: Diet as Tolerated Activity: Weight-bearing as tolerated, anterior hip precautions Cold/Heat Therapy: Ice to hip as needed Other treatments: Aspirin 81 mg twice daily for DVT prophylaxis. Patient states she has her pain medicine at home which was given to her at the preop appointment. Skin/Wound/Dressing Care Report to your healthcare provider any signs of infection, such as:: chills, fever, night sweats, increased pain, unusual drainage and unusual redness Dressing: Keep dressing clean and dry Visit Report/Discharge Packet Instructions: DI for Hip Replacement, DI for Prescription Opioid Use Stand Alone Forms: Patient Portal/API Discharge Data Primary Care Provider: Yandel Acevedo Attending Provider: Víctor Freeman Quality VTE Deep Vein Thrombosis/Pulmonary Embolism Present on Admission: No
[2023-04-02] MEDS: BUDESONIDE 0.5 MG/2 ML NEB INH (09:05)
[2023-04-02 09:07] VITALS: PULSE 64; RESP 18; O2SAT 100
[2023-04-02 09:23] VITALS: BP 133/63; PULSE 81; RESP 20; TEMP 36.3; O2SAT 94
--- NOTE | 2023-04-02 10:00 | PT.IIE ---
Current Diagnoses Unilateral primary osteoarthritis, right hip (04/01/23) Surgery Performed Operation Date: 04/01/23 12:30 Actual Procedures p Total Hip Arthroplasty/Anterior Approach(Right) - Víctor Freeman MD Surgical History (Last Reviewed 04/02/23 @ 09:04 by Parker Solorio PA-C) History of (1982) History of cholecystectomy History of hysterectomy (2017) Hx of laminectomy Hx of sinus surgery Hx of toe surgery Medical History (Last Reviewed 04/02/23 @ 09:04 by Parker Soloiro PA-C) Anesthesia complication Asthma Chronic cough Diverticulosis Edema Generalized headaches GERD (gastroesophageal reflux disease) HLD (hyperlipidemia) HTN (hypertension) Hypothyroid Nasal fracture Neuropathy Seasonal allergies Physical Therapy Inpatient Evaluation/Re-Eval M1 PT/OT-IP Prior Functional Status Start: 04/02/23 13:13 Freq: NEEDED Status: Active Protocol: Document 04/02/23 10:00 AB (Rec: 04/02/23 13:40 AB [id number]) Medical Review Prior Functional Status Medical History Reviewed Yes Communication able to make needs known Mobility and Gait pt stated that she was modified independent with all mobilities and ambulation using a SPC for ~ 6 months but has started using a 4WW for the last week due to hip pain Social History Household Members none Living Arrangements House Number of Floors (Floors) One Floor Number of Stairs To Enter/Railing? 4 steps to enter: first 3 steps with B rail and last step with R rail only ascending. Home Environment Standard Height Toilet,Walk in Shower,Built-In Shower Seat Home Equipment Front Wheel Walker,Four Wheel Walker,Straight Cane,Raised Toilet Seat w/Armrests,Hand Held Shower,Grab Bars In Shower Additional Social History Comment pt stated that her son will stay with her for ~ 1 week to assist her M2 PT-IP Current Condition Start: 04/02/23 13:13 Freq: NEEDED Status: Active Protocol: Document 04/02/23 10:00 AB (Rec: 04/02/23 13:40 AB [email or web address]) Physical Therapy Current Condition Current Condition Evaluation Date 04/02/23 Treatment Diagnosis s/p R EMANUEL anterior approach; difficulty in walking Onset Date 04/01/23 M3 PT-IP Subjective Start: 04/02/23 13:13 Freq: NEEDED Status: Active Protocol: Document 04/02/23 10:00 AB (Rec: 04/02/23 13:40 AB [email or web address]) Subjective Physical Therapy Visit Type Type Initial Evaluation Visit Start Time 10:00 Visit Stop Time 11:17 Total Visit Minutes 77 Number of BUSINESS EMPLOYMENT SPECIALIST Visits 0 Physical Therapy Visit Comments Patient Comments agreeable to do PT Therapy Pain Assessment Pain When Pain Assessed At Rest Location Right Hip Intensity 4 Scale Used Numeric (0 - 10) Pain Management Techniques Apply Cold,Distraction, Modification of Treatment,Re- positioning,Timing of Activity with Medications M4 PT-IP Mobility and Gait Start: 04/02/23 13:13 Freq: NEEDED Status: Active Protocol: Document 04/02/23 10:00 AB (Rec: 04/02/23 13:40 AB [email or web address]) PT-Bed Mobility Assessment Supine to Sit Supine to Sit Standby Assistance PT-Transfer Assessment Sit to and From Stand Sit to and from Stand Standby Assistance,Contact Guard Assistance,1 Person Assistance,Use of Upper Extremities Equipment Transfer Assistive Device Gait Belt,Front Wheeled Walker Orthotic/Prosthetic Devices or Brace: No Transfers Transfer Destination Chair Transfer Technique ambulated Transfer Ability Level of Assist Standby Assistance,Contact Guard Assistance,1 Person Assistance,Use of Upper Extremities Comments Mobility Comments pt supine in bed and agreeable to do PT. obtained PLOF and home set up info from pt. provided pt with post-op folder and reviewed contents. educated pt regarding right anterior hip precautions and WBAT on RLE. pt able to recall precautions. pt completed supine to sit SBA . able to sit on EOB SBA. completed sit to stand CGA and ambulated to the chair ~ 12 ft using FWW CGA. pt has carryover of her precautions during mobility. pt agreed to do stairs. pt completed sit to stand from the chair SBA and ambulated to the hallway towards the stairs ~ 125 ft using FWW SBA. pt sat on w/c. educated on stair climbing. pt son arrived. educated son on pt's restrictions and educated on how to assist pt with stair climbing. pt completed up/down steps using B rails CGA with PT assisting. pt completed up/ down steps again with first 2 steps using B rails and last step with R rail ascending. pt's son assist pt and completed safely. assist pt back to her room and ambulated from w/c to chair. educated pt's son on use of safety belt and how to assist pt. son was able to complete. positioned pt on the chair. call light and table placed within reach. pt and son without further concerns. Gait Assessment Gait Gait Assistance Required: Standby Assistance,Contact Guard Assist Distance (Feet) 125 Able to Maintain Weight Bearing Status Yes During Gait Assistive Devices Assistive Device Gait Belt,Front Wheeled Walker Orthotic/Prosthetic Devices or Brace: No Gait Deviations General Gait Pattern Antalgic,Decreased Feet Clearance Factors Limiting Gait Function Factors Limiting Gait Function Decreased Activity Tolerance, Decreased Strength,Limited Range of Motion,Pain,Poor Balance Stair Climbing Assessment Evaluation Level of Assist On Stairs Contact Guard Assistance Devices Stair Climbing Assistive Devices Left Railing,Right Railing Technique/Endurance Stair Climbing Direction Ascend and Descend Stair Climbing Technique Step to Step Number of Steps Climbed 3 Query Text: Stair Climbing Set # Repetitions (reps) 2 Comments Stair Climbing Comments pls refer to mobility section for details PT-Balance Assessment Sitting Balance and Reactions Static Sitting Balance Ability Normal Dynamic Sitting Balance Ability Normal Standing Balance and Reactions Static Standing Balance Ability Good Dynamic Standing Balance Ability Fair Device Used FWW M5 PT-IP Objective Assessments Start: 04/02/23 13:13 Freq: NEEDED Status: Active Protocol: Document 04/02/23 10:00 AB (Rec: 04/02/23 13:40 AB [email or web address]) Orientation Orientation/Cognition Level of Alertness Alert Orientation Name,Place,Situation Language Function Ability No Deficits Noted Safety Awareness Understands Safety Issues Memory Description No Deficits Noted Gross Range of Motion Lower Extremity ROM Assessment Within Functional Limits Strength Lower Extremity Strength Assessment Right Impaired Hip 3+/5 Knee 4-/5 Coordination Assessment Gross Coordination Gross Coordination WNL Sensation Assessment Sensation Gross Sensation WNL Muscle Tone Muscle Tone WNL Yes M6 PT-IP Treatment Start: 04/02/23 13:13 Freq: NEEDED Status: Active Protocol: Document 04/02/23 10:00 AB (Rec: 04/02/23 13:40 AB [email or web address]) Physical Therapy Treatment Exercises Exercises Heel Slides Education Education Provided Precautions,Weight Bearing Status,Post-Op Packet,Safety M7 PT-IP Assessment and Plan Start: 04/02/23 13:13 Freq: NEEDED Status: Active Protocol: Document 04/02/23 10:00 AB (Rec: 04/02/23 13:40 AB [email or web address]) PT Summary Assessment and Plan Potential Rehabilitation Potential Good Status of Condition at Evaluation Stable Summary Impairments Pain,ROM,Strength,Balance, Coordination,Sensation,Tone, Cognition,Bed Mobility, Transfers,Gait,Activity Tolerance Assessment Summary pt is a 68 y/o F s/p R EMANUEL anterior approach POD 1. pt has R hip anterior precautions and is WBAT on RLE. pt requiring SBA with transfers and ambulation using FWW and CGA for stair climbing. caregiver training conducted and pt's son was able to assist pt safely. pt plans to go home and has outpt PT set up. pt may go home when medically stable. Goals Bed Mobility Goal Independent Transfer Goal Independent,Front Wheeled Walker,Four Wheeled Walker Gait Goal Independent,Front Wheel Walker ,Four Wheel Walker Gait Distance 300 Other Goals up/down 3 steps B rails mod I up/down 1 step R rail ascending mod I Days to Meet Goals 3 Frequency of Treatment Frequency Of Treatment Twice a Day Treatment Plan Physical Therapy Treatment Plan Bed Mobility Training,Transfer Training,Gait Training, Therapeutic Exercise,Balance Retraining,Post Op Education, Discharge Planning,Hot or Cold Pack,Neuromuscular Re-ed, Coordination Retraining,Manual Therapy Precautions Anterior Hip Precautions No Hip Extension,No Hip External Rotation Weight Bearing Status Weight Bearing Status Weight Bear as Tolerated Allowed Weight Bearing Amount (enter % RLE WBAT or #) (%) Recommendations To Nursing Amount of Assist Needed Standby Assistance Discharge Recommendations PT Discharge Recommendations Home with Assistance, Outpatient PT Transportation Needs at Discharge Private Vehicle
--- NOTE | 2023-04-02 12:29 | PC.NURSE ---
Pt ambulating as per orders Sl D/C Orders for D/C recieved Home instructions given w/apparent understanding Pt escorted by staff via W/C to waiting vehicle D/C in satisfactory post op status.
--- NOTE | 2023-04-02 15:30 | CM.DANOTE ---
Reviewed EMR and team rounds for pt's medical status. Met with pt briefly to introduce self and role. Pt will d/c home with no anticipated DCP needs later this morning, son will transport. Payor: Medicare Attending: Dr. Freeman Pt is a 68 year-old F placed in a [facility] [place] [place] bed following a planned R-total hip arthroplasty surgery. Pt has recovered well and is medically stable for d/c home. Her son is planning to stay with her for the first week following surgery for care and assistance needs. She will plan to f/u with Ortho on 2-weeks for post-op visit, after which she will receive OP PT. No further needs identified at this time for DCP. Discharge Planning/Care Management CM Discharge Assessment Start: 04/02/23 15:25 Freq: Status: Active Protocol: Document 04/02/23 15:26 DPL (Rec: 04/02/23 15:29 DPL [id number]) Discharge Planning Assessment Assigned Supervisor Mill AMELIA Betts Advance Directives? No History Provided By Patient,Medical Record Has Patient been admitted in last 30 No days? Prior Living Arrangements House Household Members none Type of transporation used prior to Drives own vehicle admit Independent with ADL's Yes Is patient alert and oriented? Yes Caregiver for Another No DME Already Rented / Owned Elevated Toilet Seat,FWW / Walker,Cane Patient/Family Preference OP PT Therapy Barriers to Discharge No Discharge Plan Home Community Services Physical Therapy Transportation Arrangement Son Referrals Initiated None needed Whiteboard Updated in Patient Room with Yes name and ext. # of Supervisor Mill Review Status In Process Please Provide Date Initial DC 04/02/23 Assessment Was Performed Pre-Anesthesia Assessment Start: 03/21/23 10:33 Freq: Status: Discharge Protocol: Document 03/21/23 10:33 CAB (Rec: 03/21/23 11:32 CAB [id number]) Pre-Anesthesia Assessment Preferred Name Regina Patient Information Reviewed Via Phone Assessment Assessment Completed With Patient Diagnostic Results BMP/CMP,CBC,EKG Comment Labs/EKG @ Primary Care Provider Yandel Acevedo Comment PCP clearance scanned and in surgery folder for dos Medical Clearance Received Yes Seen Specialist in Last 12 Months Yes Specialist Seen Orthopedist Primary Language Divehi Tank Operator Required No Height 170.18 cm Weight 102.058 kg Body Mass Index (BMI) 35.2 Hearing Ability Normal Visual Assist Glasses Dentition Type Teeth, Natural Present Barriers to Learning Age related Hx Anesthesia Reactions Yes: Terrible spinal headache with , morphine feels like bugs crawling Hx Family Anesthesia Reaction No Hx Malignant Hyperthermia No Hx Blood Transfusions No Hx Blood Transfusion Reaction No Anesthesia Review Requested No Caterers Helper No alcohol intake current alcohol intake frequency holidays/special occasions only Smoking Status Never smoker Substance Use Type does not use Pain Present Pain Reported Musculoskeletal Symptoms Abnormal Gait,Back Pain, Difficulty Walking,Joint Pain, Neck Pain History of Falling (Recent or History of No ) Patient is completely paralyzed or No completely immobile Prosthesis or Orthotic Device Cane,Front Wheel Walker Mental Status Oriented to own ability Is patient on oxygen? No Does patient have ARMSTRONG/SOB Yes: Related to Asthma Hx Sleep Apnea No CPAP/BIPAP use not prescribed Currently Taking a Beta Anand No Hx Chest Pain No Hx SOB Yes: Related to Asthma Hx Syncope or Dizziness No Anti-Coagulant Therapy No Has a Plasma Processing Centrifuge Operator No Cardiac Testing No Hx Pacemaker/ICD No Pacemaker Rep Required? No Cardiac Clearance Received Not Applicable Diet Type At Home Regular Dysphagia No Gastrointestinal Symptoms Constipation,Reflux Bladder Pattern Urgency Urinary Catheter Present No Hx Urinary Self Catheterization No Diabetes No HgbA1C 5.0 Date 02/23/23 Patient No Lactating No Hx Drug Resistant Organism No Presence of External or Internal Medical No Devices Received a COVID vaccine? Yes: J&J Received all doses? No Marital Status / Lives With none Current Living Arrangements House Number of Floors (Floors) One Floor Support System Child/Children,Shae/God, Friend(s) Does the Patient Have Assistance After Yes: Son will stay w/pt for Surgery 1st week after surgery Patient Discharge Plan Description Return Home Comment Pt advised overnight length of stay per surgeon Feels Safe in Current Environment Yes Been Physically Hurt or Threatened By a No Person in Current Environment Do you have thoughts of harming yourself None or others? Are you currently considering suicide? No Do you have a plan to hurt yourself or No Plan others? Do You Have Any Spiritual Beliefs That No May Affect Your HC Choices? Do You Have Any Cultural Practices That No May Affect Your HC Choices? Comment Mormonism Who Can We Speak to About Patient's Care Family, friends Identifying Code for Release of Patient Declines to issue Information Health Care Proxy/Next of Kin Nuno (son) Health Care Proxy Emergency Contact Name Nuno (son) Emergency Contact Advance Directives? No Power of Sign Hanger Yes Power of Sign Hanger Name Nuno Arteaga Power of Sign Hanger PAC Instructions Do not shave/clip surgical site,Durable medical equipment ,Medications to take/avoid, Nasal antibiotic,No ETOH/ petroleum product on skin DOS, NPO,Pre-surgical wash,Sensory aids,Sturdy shoes/comfortable clothes,Do not bring valuables and remove jewelry
== END 2023-04-02 12:10 | disposition home or self-care (01) ==
LOC: OR 10:18 → AC 10:18
PROVIDERS: PCP Family Medicine; Referring Provider Orthopaedic Surgery Adult Reconstructive Orthopaedic Surgery; Visit Provider Orthopaedic Surgery Adult Reconstructive Orthopaedic Surgery
PROC: (CPT 27130; principal; 2023-04-01 12:30)
DX: M16.11 Unilateral primary osteoarthritis, right hip (principal)
CPT/HCPCS: 27130; 36415; 73502; 76000; 85014; 85018; 94640; 97161; 97530; C1776; J0690; J1100; J1170; J2250; J2405; J2704; J3010

== ENCOUNTER → 2024-01-13 12:50 | Outpatient (CLI) | payer MEDICARE, OTHER, SELFPAY ==
[2023-04-01 17:13] VITALS: BMI 35.2
--- NOTE | 2024-01-13 12:51 | DI.MRI.S_ITS ---
PROCEDURE: MR ANKLE LT WO CON INDICATIONS: LEFT PERONEAL TENDINOSIS TECHNIQUE: Noncontrast sagittal T1 spin echo and T2 fast spin echo with fat saturation, axial proton density fast spin echo and T2 fast spin echo with fat saturation, coronal T1 spin echo and T2 fast spin echo with fat saturation through the ankle/hindfoot. COMPARISON: [facility], [place], XR FOOT 3 VIEWS WEIGHT BEARING LEFT, 09/27/2023, 10:26. [facility], [place], XR ANKLE 1 OR 2 VIEWS WEIGHT BEARING BILATERAL, 09/27/2023, 10:32. FINDINGS: Image quality: Excellent. Bones and joints: Mild midfoot and hindfoot joint osteoarthritis is seen with joint space narrowing and subchondral sclerosis. 4 mm osteochondral injury involving medial weight-bearing portion of talar dome is seen. No fracture or dislocation. Intraosseous cyst formation is seen involving inferior aspect of lateral cuneiform. Small tibiotalar and subtalar joint effusion, no loose bodies. Well-defined plantar and dorsal calcaneal enthesophytes are also seen. Medial structures: The posterior tibialis tendon is mildly thickened at the level of distal talus and talonavicular joint. The flexor digitorum longus, and flexor hallucis longus tendons are intact. The posterior tibial neurovascular bundle appears normal within the tarsal tunnel, without extrinsic mass effect. The deltoid ligament and spring ligament are thickened. Lateral structures: The anterior talofibular ligament is thickened with intrasubstance T2 hyperintense signal. The calcaneofibular, and posterior talofibular ligaments appear intact. More superiorly, the anterior and posterior tibiofibular ligaments appear intact, as is the intermalleolar ligament. The tibiofibular syndesmosis is normal in width at 2 mm or less. The peroneus longus tendon is thickened at the level of lateral malleolus tip extending to the level of calcaneocuboid joint. The peroneus brevis tendon is mildly thickened at the level of lateral malleolus extending to its distal insertion on 5th metatarsal base.. The sinus tarsi demonstrates normal fatty signal, without edema, fibrosis, or cyst formation. Visualized sinus tarsi components (cervical ligament, interosseous talocalcaneal ligament, roots of the inferior extensor retinaculum) appear normal. Anterior structures: The tibialis anterior, extensor hallucis longus, and extensor digitorum longus tendons appear intact. The dorsal talonavicular ligament appears intact. Posterior and plantar structures: Achilles tendon is intact. Mildly thickened medial band of plantar fascia is seen at its insertion on plantar calcaneus. No abductor digiti quinti muscle atrophy to suggest Baig neuropathy. IMPRESSION: 1. Mild midfoot and hindfoot joint osteoarthritis. Well-defined plantar and dorsal calcaneal enthesophytes. No fracture or dislocation. 4 mm osteochondral injury involving medial weight-bearing portion of talar dome. Small joint effusion, no loose bodies. 2. Tendinosis involving distal posterior tibialis tendon at the level of distal talus and talonavicular joint. 3. Low to moderate grade peroneus longus tendinosis at the level of lateral malleolus tip extending to the level of cuboid. Low-grade tendinosis involving peroneus brevis tendon at the level of lateral malleolus tip extending to its distal insertion. 4. Low-grade medial ankle ligament sprain. Low-grade sprain/intrasubstance partial-thickness tear involving anterior talofibular ligament. No full-thickness ankle ligament rupture. 5. Mildly thickened medial band of plantar fascia at its calcaneal insertion suggestive of low-grade plantar fasciitis. Dictated by: Clovis Alicea M.D. on 01/14/2024 at 18:22 Approved by: Clovis Alicea M.D. on 01/14/2024 at 21:28
== END ==
LOC: MRI 12:51
PROVIDERS: PCP Family Medicine; Referring Provider Orthopaedic Surgery Foot and Ankle Surgery; Visit Provider Orthopaedic Surgery Foot and Ankle Surgery
DX: M19.072 Primary osteoarthritis, left ankle and foot (principal); M25.475 Effusion, left foot; M77.32 Calcaneal spur, left foot; S93.492A Sprain of other ligament of left ankle, initial encounter; M67.88 Other specified disorders of synovium and tendon, other site
CPT/HCPCS: 73721

== ENCOUNTER → 2024-01-17 15:12 | Outpatient (CLI) | payer MEDICARE, OTHER, SELFPAY ==
[2023-04-01 17:13] VITALS: BMI 35.2
--- NOTE | 2024-01-17 15:13 | DI.MG.S_ITS ---
BILATERAL DIGITAL SCREENING MAMMOGRAM 3D/2D WITH CAD: 01/17/2024 CLINICAL: Routine screening. Family history breast cancer. Comparison is made to exams dated: 12/29/2022 mammogram, 05/26/2021 mammogram, 10/07/2020 mammogram, and 10/03/2019 mammogram - [facility]. The breasts are heterogeneously dense, which may obscure small masses (category c / 51-75% glandular tissue). Current study was also evaluated with a Computer Aided Detection (CAD) system. There are benign calcifications in both breasts. No significant masses, calcifications, or other findings are seen in either breast. There has been no significant interval change. IMPRESSION: BENIGN There is no mammographic evidence of malignancy. A 1 year screening mammogram is recommended. Based on Tyrer-Cuzick model (a risk assessment model), the patient's lifetime risk is 21.0% and her 10 year risk is 12.2%. If a patient has an elevated risk, a more comprehensive evaluation should be considered and/or a referral to a genetic counselor. The [place] [employer], [employer], and NCCN Guidelines advise the consideration of Breast MRI as an adjunct to screening mammography in patients whose Lifetime risk to develop breast cancer is 20% or higher. This exam was interpreted at Station ID: [id number]. NOTE: For mammograms, a report in lay terms will be sent to the patient. Approximately 15% of breast malignancies will not be visualized mammographically. In the management of a palpable breast mass, a negative mammogram must not discourage biopsy of a clinically suspicious lesion. Electronically Signed By: Concepcion loya/tianna:01/18/2024 11:59:07 letter sent: Normal Exam ACR BI-RADS Category 2: Benign
== END ==
PROVIDERS: PCP Family Medicine; Referring Provider Family Medicine; Visit Provider Family Medicine
DX: Z12.31 Encounter for screening mammogram for malignant neoplasm of breast (principal); Z80.3 Family history of malignant neoplasm of breast; R92.333 Mammographic heterogeneous density, bilateral breasts
CPT/HCPCS: 77063; 77067

== ENCOUNTER 2024-04-22 09:48 | Emergency (ER) | payer MEDICARE, OTHER, SELFPAY ==
[2023-04-01 17:13] VITALS: BMI 35.2
[2024-04-22 09:53] VITALS: BP 162/76; PULSE 64; RESP 18; TEMP 36.9; O2SAT 99; BMI 35.4
--- NOTE | 2024-04-22 10:05 | DI.US.S_ITS ---
PROCEDURE: US PERIPH VENOUS LOW EXTREM RT INDICATIONS: DVT rule out TECHNIQUE: Real-time imaging, as well as color and pulse Doppler interrogation, were performed of the lower extremity deep veins from the inguinal ligament to the popliteal fossa, with documentation of the visualized calf veins. COMPARISON: None. FINDINGS: The common femoral, femoral, popliteal, and the visualized calf veins are normally compressible, and free of intraluminal thrombus. Color and pulse Doppler demonstrate normal phasic intraluminal flow. There is normal augmentation response to distal compression maneuver. At the area of concern in the inferior labia on the right, hypoechoic region at the inferior labia with serpiginous appearance possibly a complicated cyst with surrounding superficial vessels. Correlate with clinical exam. IMPRESSION: No findings of lower extremity deep venous thrombosis. Dictated by: Titi Larry M.D. on 04/22/2024 at 10:21 Approved by: Titi Larry M.D. on 04/22/2024 at 10:23
--- NOTE | 2024-04-22 10:50 | ED_ITS ---
HPI - Extremity Problem <Jelena Loving PA-C - Last Filed: 04/22/24 12:01> General Chief complaint: Extremity Problem,Nontraumatic Stated complaint: R leg pain Time Seen by Provider: 04/22/24 10:50 History of Present Illness HPI Narrative: 69-year-old female presents this morning with right-sided leg pain that began yesterday. She was initially seen at the walk-in clinic but then referred here for concerns of possible DVT as she also noticed a lump in her right groin this morning. She states it has a little tender. She is denying any new injury, no recent illness, the pain starts in her buttock and travels down the lateral aspect of her leg down to her foot. She describes it as a cramp and it was their ?all night?. She tried some lidocaine cream with minimal relief. History is significant for a right hip replacement 1 year ago. She also endorses generalized pain and arthritis which apparently she has been taking ibuprofen 800 mg 3 times daily with food for the last year. She denies any numbness, tingling, weakness, footdrop, back pain. No issues with bowel or bladder. No vaginal symptoms. Surgical history includes laparoscopic total hysterectomy. She takes triamterene hydrochlorothiazide for lower leg edema that occurs generally when she travels, she denies a formal diagnosis of hypertension. She no longer takes aspirin daily, occasional acetaminophen, Synthroid, Flovent, albuterol for her asthma. 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 She has not had recent physical therapy and no other treatment for this particular issue tried. Lastly she mentions a history of epigastric pain that has been going on and off for about 1 week. She points to the subxiphoid and states it radiates through to the back. When this occurs she takes her albuterol inhaler and it seems to help. She denies any nausea, vomiting, shortness of breath, wheezing, chest pain, lightheadedness, diaphoresis. She admits to having some GERD but has never had an EGD and does not take any PPIs. No disruption during sleep. All other systems reviewed and are negative. Related Data Home Medications Medication Instructions Recorded Confirmed ascorbic acid (vitamin C) 1,000 mg 1,000 mg PO DAILY ##0 06/14/10 04/01/23 tablet (Vitamin C) cholecalciferol (vitamin D3) 50 50 mcg PO DAILY ##0 06/14/10 04/01/23 mcg (2,000 unit) tablet (Vitamin D3) coenzyme Q10 100 mg capsule 200 mg PO DAILY ##0 06/14/10 04/01/23 (CoQ-10) levothyroxine 75 mcg tablet 75 mcg PO DAILY ##0 06/14/10 04/01/23 (Synthroid) triamterene 37.5 1 cap PO DAILY ##0 06/14/10 04/01/23 mg-hydrochlorothiazide 25 mg capsule rosuvastatin 10 mg tablet 20 mg PO DAILY 02/25/22 04/01/23 acetaminophen 500 mg tablet 500 mg PO BID-TID PRN Pain 03/21/23 04/01/23 ibuprofen 800 mg tablet 800 mg PO TID 03/21/23 04/01/23 valacyclovir 500 mg tablet 500 mg PO BID PRN Flare 03/21/23 03/21/23 fluticasone propionate 110 2 puff inhalation BID 04/01/23 04/01/23 mcg/actuation HFA aerosol inhaler (Flovent HFA) Previous Rx's Medication Instructions Recorded aspirin 81 mg tablet,delayed 81 mg PO BID #60 tabs 04/02/23 release doxycycline hyclate 100 mg capsule 100 mg PO BID #14 caps 04/22/24 Allergies Allergy/AdvReac Type Severity Reaction Status Date / Time morphine Allergy Intermediate Itching Verified 04/01/23 10:50 all over adhesive tape Allergy Mild Skin is Verified 04/01/23 10:50 sensitive, itching tomato Allergy Mild ITCHING Verified 04/01/23 10:50 Review of Systems <Jelena Loving PA-C - Last Filed: 04/22/24 12:01> Review of Systems Narrative: All other systems reviewed and are negative. Patient History <Jelena Loving PA-C - Last Filed: 04/22/24 12:01> Medical History Anesthesia complication Nasal fracture Diverticulosis Edema HLD (hyperlipidemia) HTN (hypertension) Chronic cough Generalized headaches Neuropathy Seasonal allergies GERD (gastroesophageal reflux disease) Asthma Hypothyroid Surgical History Hx of toe surgery Hx of laminectomy History of (1982) History of hysterectomy (2018) Hx of sinus surgery History of cholecystectomy Social History household members: none Smoking Status: Never smoker alcohol intake: current Smoking Status: Never smoker alcohol intake frequency: holidays/special occasions only Exam <Jelena Loving PA-C - Last Filed: 04/22/24 12:01> Initial Vital Signs Initial Vital Signs: Vital Signs Temperature 98.4 F 04/22/24 09:53 Pulse Rate 64 04/22/24 09:53 Respiratory Rate 18 04/22/24 09:53 Blood Pressure 162/76 H 04/22/24 09:53 Pulse Oximetry 99 04/22/24 09:53 Oxygen Delivery Method Room Air 04/22/24 09:53 Reviewed and are normal except for elevated systolic. Const General: cooperative, comfortable and well developed Neck Neck: normal visual inspection, full ROM and no meningeal signs Chest Chest: normal inspection of the chest Resp Effort & Inspection: normal respiratory effort and able to speak in complete sentences Auscultation: clear to auscultation bilaterally, no crackles, no rales and no rhonchi Cardio Rate: regular rate Rhythm: regular rhythm GI Inspection: normal to inspection, non-distended and obesity Palpation: soft, no hepatosplenomegaly, No firm and No guarding Percussion: normal to percussion Auscultation: normal bowel sounds Other: In the right inguinal crease just be medial within the inferior mons pubis is a round raised firm reddened lesion about 1 cm. It is tender, no fluctuance, no vesicles, pustules or papules. He redness is about 3-4 cm in diameter. No induration, tissues are warm not hot to the touch. No inguinal adenopathy. No varicosities. Extrem Right lower extremity: full ROM Other: Focal tenderness in the piriformis on the right side, no mass, mild tenderness in the sciatic notch without radiation of symptoms. Valgus knees bilaterally. Right knee joint is more prominent than the left consistent with osteoarthritis. Active range of motion is intact. Right SI joint also has some focal tenderness. Pain reproduced with external rotation with simultaneous knee flexion on the right side. Gait is normal to her baseline, no limp. Full weightbear. Distal neurovascular is grossly intact. Mild tenderness along the ITB band without guarding. Hip abduction adduction flexion and extension are intact. Internal external rotation are also intact. No pain reproduced. Her primary source of pain appears to be the gluteus region and piriformis. <DO Maine Wallace Last Filed: 04/22/24 12:58> Initial Vital Signs Initial Vital Signs: Vital Signs Temperature 98.4 F 04/22/24 09:53 Pulse Rate 64 04/22/24 09:53 Respiratory Rate 18 04/22/24 09:53 Blood Pressure 162/76 H 04/22/24 09:53 Pulse Oximetry 99 04/22/24 09:53 Oxygen Delivery Method Room Air 04/22/24 09:53 Course <Jelena Loving PA-C - Last Filed: 04/22/24 12:01> Orders Ordered: ED Orders 04/22/24 10:05 US periph venous low extrem rt Stat Vital Signs Vital signs: Vital Signs - 8 hr 04/22/24 09:53 04/22/24 11:39 Temperature 98.4 F Pulse Rate 64 63 Respiratory Rate 18 18 Blood Pressure 162/76 H 177/78 H Pulse Oximetry 99 99 Oxygen Delivery Method Room Air Room Air <DO Maine Wallace Last Filed: 04/22/24 12:58> Orders Ordered: ED Orders 04/22/24 10:05 US periph venous low extrem rt Stat Vital Signs Vital signs: Vital Signs - 8 hr 04/22/24 09:53 04/22/24 11:39 Temperature 98.4 F Pulse Rate 64 63 Respiratory Rate 18 18 Blood Pressure 162/76 H 177/78 H Pulse Oximetry 99 99 Oxygen Delivery Method Room Air Room Air MDM - Extremity (Nontraumatic) <CHASIDY Stein Last Filed: 04/22/24 12:01> Imaging Data US - DVT: My Impression: Per supervisor fertilizer, negative for DVT. Inguinal lump appears to be superficial, somewhat tortuous. No hernia. May represent varicose vein versus other. Exam by this provider is consistent with a in early abscess formation in the area described. It was superficial, tender, not fluctuant but warm and uniform. Measuring approximately 1 cm in diameter. MDM Narrative Medical decision making narrative: Her exam was consistent with a skin abscess involving the right pubic inguinal area, it is superficial but it is not ready for incision and drainage. She is afebrile. She is instructed to do warm moist compresses several times a day and I have started her on doxycycline for 1 week's time. Regarding her hip it appears to be from the piriformis and right SI joint. Discussed her long-term use of ibuprofen 800 mg t.i.d. I have asked her to follow up with her PCP and discuss alternatives, she might be a candidate for Celebrex, physical therapy, massage therapy, we discussed use of ice and heat therapy on her SI joint as well as her piriformis. I think contributing factors include her valgus knees she states she has been this way her entire life but I think it is starting to catch up to her and cause strain on the proximal joint. Regarding her GERD she might want to consider a trial of Prilosec twice daily for about 1-2 weeks and again please do follow up with your provider in [facility]. Discharge Plan Departure Patient Disposition: Home Clinical Impression: SI (sacroiliac) joint inflammation Abscess of skin Qualifiers: Site of cutaneous abscess: other site Qualified Code(s): L02.818 - Cutaneous abscess of other sites GERD (gastroesophageal reflux disease) Qualifiers: Esophagitis presence: esophagitis presence not specified Qualified Code(s): K21.9 - Gastro-esophageal reflux disease without esophagitis Instructions: DI for Gastroesophageal Reflux Disease (GERD), DI Sacroiliac Joint Dysfunction, DI for Skin Abscess Activity Restrictions/Additional Instructions: You have a small early abscess formation also known as a boil. It was not ready for incision and drainage, I would like you to do warm moist compresses several times a day and it will soften, it might spontaneously drain on its own and that is okay just use soap and water cleanse or a movable shower head to irrigate. If it becomes more soft and ready for drainage please do not hesitate to seek medical attention, you may return to the emergency department or any Urgent Care. I have started you on an antibiotic, please do follow up with your primary care provider regarding your hip I believe your SI joint is involved and the contributing factors could be your ?knock knees?. You may benefit from physical therapy, massage therapy, potentially acupuncture, or other modalities to strengthen your lower extremities. Regarding your ibuprofen usage, I would like you discuss this with her PCP because this could be contributing to your GERD, you might be a good candidate for Celebrex for your arthritis and pain but again please do have this conversation with your primary care provider and discuss the risks and benefits. Acetaminophen as another option but also regular icing and heat and massage. You might want to consider a trial of [id number] Prilosec also known as omeprazole 20 mg twice daily about 1 hour before any meals. So once in the morning before breakfast and once at bedtime. This will help reduce any acid and likely help with your previous epigastric pain. Please do not hesitate to seek medical attention if you develop any worrisome symptoms, any new symptoms or other concerns. Prescriptions: New doxycycline hyclate 100 mg capsule 100 mg PO BID Qty: 14 0RF No Action rosuvastatin 10 mg tablet 20 mg PO DAILY ascorbic acid (vitamin C) [Vitamin C] 1,000 mg Tablet 1,000 mg PO DAILY Qty: 0 cholecalciferol (vitamin D3) [Vitamin D3] 50 mcg (2,000 unit) Tablet 50 mcg PO DAILY Qty: 0 coenzyme Q10 [CoQ-10] 100 mg Capsule 200 mg PO DAILY Qty: 0 triamterene-hydrochlorothiazid 37.5-25 mg Capsule 1 cap PO DAILY Qty: 0 levothyroxine [Synthroid] 75 mcg Tablet 75 mcg PO DAILY Qty: 0 ibuprofen 800 mg Tablet 800 mg PO TID valacyclovir 500 mg Tablet 500 mg PO BID PRN (Reason: Flare) acetaminophen 500 mg Tablet 500 mg PO BID-TID PRN (Reason: Pain) fluticasone propionate [Flovent HFA] 110 mcg/actuation HFA aerosol inhaler 2 puff inhalation BID aspirin 81 mg Tablet,Delayed Release (Dr/Ec) 81 mg PO BID Qty: 60 0RF Referrals: Yandel Acevedo DO [Primary Care Provider] - Stand Alone Forms: Patient Portal/API/Survey ED Sign-out <Abeba Dowling DO - Last Filed: 04/22/24 12:58> Cosign ED Attending Savage Attestation: I was immediately available in the department for consultation.
[2024-04-22 11:39] VITALS: BP 177/78; PULSE 63; RESP 18; O2SAT 99
== END 2024-04-22 11:40 | disposition home or self-care (01) ==
PROVIDERS: Emergency Provider Physician Assistant Medical; PCP Family Medicine
DX: M46.1 Sacroiliitis, not elsewhere classified (principal); L02.214 Cutaneous abscess of groin; K21.9 Gastro-esophageal reflux disease without esophagitis
CPT/HCPCS: 93971; 99281; 99283

== ENCOUNTER → 2024-06-07 08:52 | Outpatient (CLI) | payer MEDICARE, OTHER, SELFPAY ==
[2023-04-01 17:13] VITALS: BMI 35.2
--- NOTE | 2024-06-07 08:54 | DI.MRI.S_ITS ---
PROCEDURE: MR LUMBAR SPINE WO CON INDICATIONS: SACROCOCCYGEAL DISORDERS TECHNIQUE: Noncontrast sagittal T1 spin echo and T2 fast echo, sagittal STIR, and T2 fast spin echo through the lumbar spine. In cases with scoliosis, additional coronal T2 fast spin echo may be performed. COMPARISON: [facility], MR, L-SPINE W&WO CONTRAST, 10/03/2015, 7:28. [facility], MR, MR LUMBAR SPINE WO CON, 05/15/2022, 14:37. [facility], CR, XR LUMBAR SPINE WITH OBLIQUES PLUS FLEXION EXTENSION, 05/29/2024, 11:15. FINDINGS: Image quality: Excellent. Alignment and Curvature: There is minimal retrolisthesis seen at L2-L3 and at L5-S1. Minimal anterolisthesis is seen at L4-L5 Bone Marrow: Marrow is of normal overall signal. No acute vertebral body compression fractures. Spinal Cord: Conus medullaris terminates at the L1 level. Visualized cord demonstrates normal signal and size. Paraspinous Soft Tissues: No paravertebral masses. T12-L1: Normal appearance. L1-L2: Normal appearance. L2-L3: Moderate loss of disc height is seen. Loss of disc signal is seen. Moderate disc bulge is seen, with a central/right disc extrusion, with superior migration of the disc material. The extruded disc material measures 11 mm craniocaudal. Mild facet joint hypertrophy is seen. No significant neural foraminal narrowing is seen. Moderate central canal narrowing is seen. The disc extrusion is new compared to 2022. L3-L4: Moderate loss of disc height is seen. Loss of disc signal is seen. Moderate generalized disc bulge is seen. There is a mild central/left disc extrusion. Mild to moderate facet hypertrophy is seen. There is moderate right-sided and [id number] left-sided neural foraminal narrowing. Moderate central canal narrowing is seen. These imaging findings have progressed compared to the prior study. L4-L5: At least moderate loss of disc height and disc signal can be seen. Reactive marrow endplate changes are seen which are hypointense on T1-weighted imaging and hyperintense on T2 weighted imaging, which is most consistent with edema (Modic type I changes). Moderate disc bulge is seen, which is eccentric to the right. There is at least moderate facet hypertrophy. There is [id number] left-sided and at least moderate right-sided neural foraminal narrowing. No central canal narrowing is seen. There is slight progression of degenerative change compared to prior MRI. L5-S1: Moderate loss of disc height is seen. Loss of disc signal is seen. Moderate disc bulge is seen at this level, which is eccentric to the left. There is a mild central/left disc protrusion, with an associated annular fissure. Moderate facet joint hypertrophy is seen. There is at least moderate left-sided neural foraminal narrowing and there is moderate right-sided foraminal narrowing. Mild central canal narrowing is seen. These imaging findings have progressed compared to the prior study. IMPRESSION: There is a new disc extrusion seen at the L2-L3 level the central/right location. Multiple levels of lumbar spine degenerative change can be seen, which are overall progressed compared to 2022. Dictated by: Frakn Aragon M.D. on 06/08/2024 at 20:04 Approved by: Frank Aragon M.D. on 06/08/2024 at 20:09
== END ==
LOC: MRI 08:53
PROVIDERS: PCP Family Medicine; Referring Provider Physical Medicine & Rehabilitation Pain Medicine; Visit Provider Physical Medicine & Rehabilitation Pain Medicine
DX: M53.3 Sacrococcygeal disorders, not elsewhere classified (principal); M51.26 Other intervertebral disc displacement, lumbar region; M47.816 Spondylosis without myelopathy or radiculopathy, lumbar region; M47.817 Spondylosis without myelopathy or radiculopathy, lumbosacral region
CPT/HCPCS: 72148